=== PATIENT | male | born 1955 | race Caucasian/White ===

== ENCOUNTER 2017-07-04 09:16 | Emergency (ER) | payer BC, OTHER ==
[2017-07-04 09:26] VITALS: BP 150/87
[2017-07-04] MEDS ORDERED: Sodium Chloride 0.9% 10 ML Syringe FLUSH PRN (09:31)
--- NOTE | 2017-07-04 10:37 | CR ---
Chest: Portable view of the chest was obtained. Comparison: No prior chest x-ray. Heart size and mediastinum are within normal limits for portable technique. Lungs are clear. Right shoulder prosthesis is noted. Slight degenerative change is partially visualized within the spine. Impression: 1. Nothing acute is appreciated on portable chest x-ray. Diagnostic code #2
--- NOTE | 2017-07-04 12:51 | EDM.PDOC ---
ED HPI GENERAL MEDICAL PROBLEM - General Chief Complaint: Chest Pain Stated Complaint: [facility] Time Seen by Provider: 07/04/17 09:24 Source of Information: Reports: Patient History Limitations: Reports: No Limitations - History of Present Illness INITIAL COMMENTS - FREE TEXT/NARRATIVE: The patient presents by [place] [facility] for chest pain. This has been going on for a few months. He will get pressure in the upper chest and neck and then have lightheadedness. He will also feel sick and get weak. He says he has had multiple episodes of this. This morning it was more severe so he went to the clinic and he was sent her by ambulance. He was given some aspirin on the way here and the pain went away. He has a history of hypertension and type II diabetes. He has no history of heart disease but he does have a family history of heart disease with his mom. He denies fever, chills, cough, congestion, runny nose, abdominal pain, nausea or vomiting. He feels like his heart may be beating to fast or slow at times with it. Onset: Sudden Duration: Hour(s): Location: Reports: Chest Quality: Reports: Pressure Severity: Moderate Improves with: Reports: None Worsens with: Reports: None Associated Symptoms: Reports: Chest Pain. Denies: Confusion, Cough, Fever/ Chills, Headaches, Nausea/Vomiting, Shortness of Breath Treatments FIELD CONTACT PERSON: Reports: Aspirin, IV/IO - Related Data Allergies Allergy/AdvReac Type Severity Reaction Status Date / Time ketorolac tromethamine Allergy Other Verified 07/04/17 09:26 [From Toradol] Home Meds: Home Meds Atenolol 100 mg PO DAILY 07/04/17 [History] Benazepril [Lotensin] 10 mg PO DAILY 07/04/17 [History] Clotrimazole/Betamethasone Dip [Lotrisone Cream] 1 applic TP DAILY 07/04/17 [ History] Fish Oil/[place]-3 Fatty Acids [Fish Oil 1,000 MG] 1,000 mg PO DAILY 07/04/17 [ History] Gabapentin [Neurontin] 300 mg PO TID 07/04/17 [History] Ibuprofen 800 mg PO Q8H PRN 07/04/17 [History] Loratadine [Claritin] 10 mg PO DAILY 07/04/17 [History] Multivitamin [Multivitamins] 1 each PO DAILY 07/04/17 [History] Simvastatin 40 mg PO DAILY 07/04/17 [History] Venlafaxine [Effexor XR] 75 mg PO DAILY 07/04/17 [History] metFORMIN HCl [Metformin HCl] 500 mg PO BID 07/04/17 [History] Past Medical History Cardiovascular History: Reports: High Cholesterol, Hypertension Neurological History: Reports: Neuropathy, Diabetic Endocrine/Metabolic History: Reports: Diabetes, Type II - Past Surgical History Musculoskeletal Surgical History: Reports: Shoulder Surgery Social & Family History - Tobacco Use Smoking Status *Q: Never Smoker - Caffeine Use Caffeine Use: Reports: Energy Drinks - Recreational Drug Use Recreational Drug Use: No ED ROS GENERAL - Review of Systems Review Of Systems: See Below Constitutional: Reports: No Symptoms HEENT: Reports: No Symptoms Respiratory: Reports: No Symptoms Cardiovascular: Reports: Chest Pain, Lightheadedness Endocrine: Reports: No Symptoms GI/Abdominal: Reports: No Symptoms : Reports: No Symptoms Musculoskeletal: Reports: No Symptoms Skin: Reports: No Symptoms Neurological: Reports: No Symptoms ED EXAM, GENERAL - Physical Exam Exam: See Below Exam Limited By: No Limitations General Appearance: Alert, No Apparent Distress Ears: Normal External Exam Nose: Normal Inspection Head: Atraumatic, Normocephalic Neck: Normal Inspection Respiratory/Chest: No Respiratory Distress, Lungs Clear, Normal Breath Sounds Cardiovascular: Regular Rate, Rhythm, No Edema, No Murmur GI/Abdominal: Soft, Non-Tender, No Organomegaly, No Mass Back Exam: Normal Inspection Extremities: Normal Inspection EKG INTERPRETATION EKG Date: 07/04/17 Time: 09:25 Rhythm: NSR Rate (Beats/Min): 60 [place]: Normal P-Wave: Present QRS: Normal ST-T: Elevated (Minimal ST elevation in the anterior leads seen on prior EKG also) QT: Normal Course - Vital Signs Last Recorded V/S: Last Vital Signs Temp 98.6 F 07/04/17 09:23 Pulse 65 07/04/17 09:23 Resp 17 07/04/17 09:23 BP 150/87 H 07/04/17 09:23 Pulse Ox 94 L 07/04/17 09:23 - Orders/Labs/Meds Orders: Active Orders 24 hr Category Date Time Status Cardiac Monitoring [RC] . DIRECTED Care 07/04/17 09:31 Active EKG Documentation Completion [RC] ASDIRECTED Care 07/04/17 09:24 Inactive EKG Documentation Completion [RC] ASDIRECTED Care 07/04/17 12:10 Active Holter Monitor 48 Hours [RC] .PRN Care 07/04/17 13:20 Active Oxygen Therapy [RC] PRN Care 07/04/17 09:31 Active Peripheral IV Care [RC] . DIRECTED Care 07/04/17 09:32 Active Sodium Chloride 0.9% [Saline Flush] Med 07/04/17 09:31 Active 10 ml FLUSH ASDIRECTED PRN Peripheral IV Insertion Adult [OM.PC] Stat Oth 07/04/17 09:31 Ordered EKG 12 Lead [EK] Stat Ther 07/04/17 09:24 Ordered EKG 12 Lead [EK] Stat Ther 07/04/17 12:10 Ordered Medication Orders Sodium Chloride (Saline Flush) 10 ml FLUSH ASDIRECTED PRN PRN Reason: Keep Vein Open Last Admin: 07/04/17 09:37 Dose: 10 ml Labs: Laboratory Tests 07/04/17 07/04/17 07/04/17 Range/Units 09:45 09:45 09:45 WBC 6.69 (4.23-9.07) K/mm3 RBC 5.10 (4.63-6.08) M/mm3 Hgb 15.3 (13.7-17.5) gm/L Hct 44.1 (40.1-51.0) % MCV 86.5 (79.0-92.2) fl MCH 30.0 (25.7-32.2) pg MCHC 34.7 (32.2-35.5) g/dl RDW Std Deviation 45.1 H (35.1-43.9) fL Plt Count 189 (163-337) K/mm3 MPV 10.9 (9.4-12.3) fl Neut % (Auto) 49.4 (34.0-67.9) % Lymph % (Auto) 31.7 (21.8-53.1) % [place] % (Auto) 13.3 H (5.3-12.2) % Eos % (Auto) 5.2 (0.8-7.0) Baso % (Auto) 0.1 (0.1-1.2) % Neut # (Auto) 3.30 (1.78-5.38) K/mm3 Lymph # (Auto) 2.12 (1.32-3.57) K/mm3 [place] # (Auto) 0.89 H (0.30-0.82) K/mm3 Eos # (Auto) 0.35 (0.04-0.54) K/mm3 Baso # (Auto) 0.01 (0.01-0.08) K/mm3 D-Dimer, Quantitative 0.29 (0.19-0.59) mg/L Sodium 140 (136-145) mEq/L Potassium 4.3 (3.5-5.1) mEq/L Chloride 106 (98-107) mEq/L Carbon Dioxide 25 (21-32) mEq/L Anion Gap 13.3 (5-15) BUN 20 H (7-18) mg/dL Creatinine 0.9 (0.7-1.3) mg/dL Est Cr Clr Drug Dosing 83.39 mL/min Estimated GFR (MDRD) > 60 (>60) mL/min BUN/Creatinine Ratio 22.2 H (14-18) Glucose 89 (80-115) mg/dL Calcium 9.0 (8.5-10.1) mg/dL Total Bilirubin 0.5 (0.2-1.0) mg/dL AST 32 (15-37) U/L ALT 46 (16-63) U/L Alkaline Phosphatase 96 (46-116) U/L Troponin I < 0.017 (0.00-0.056) ng/mL Total Protein 7.5 (6.4-8.2) g/dl Albumin 4.0 (3.4-5.0) g/dl Globulin 3.5 gm/dL Albumin/Globulin Ratio 1.1 (1-2) 07/04/ Range/Units 12:20 WBC (4.23-9.07) K/mm3 RBC (4.63-6.08) M/mm3 Hgb (13.7-17.5) gm/L Hct (40.1-51.0) % MCV (79.0-92.2) fl MCH (25.7-32.2) pg MCHC (32.2-35.5) g/dl RDW Std Deviation (35.1-43.9) fL Plt Count (163-337) K/mm3 MPV (9.4-12.3) fl Neut % (Auto) (34.0-67.9) % Lymph % (Auto) (21.8-53.1) % [place] % (Auto) (5.3-12.2) % Eos % (Auto) (0.8-7.0) Baso % (Auto) (0.1-1.2) % Neut # (Auto) (1.78-5.38) K/mm3 Lymph # (Auto) (1.32-3.57) K/mm3 [place] # (Auto) (0.30-0.82) K/mm3 Eos # (Auto) (0.04-0.54) K/mm3 Baso # (Auto) (0.01-0.08) K/mm3 D-Dimer, Quantitative (0.19-0.59) mg/L Sodium (136-145) mEq/L Potassium (3.5-5.1) mEq/L Chloride (98-107) mEq/L Carbon Dioxide (21-32) mEq/L Anion Gap (5-15) BUN (7-18) mg/dL Creatinine (0.7-1.3) mg/dL Est Cr Clr Drug Dosing mL/min Estimated GFR (MDRD) (>60) mL/min BUN/Creatinine Ratio (14-18) Glucose (80-115) mg/dL Calcium (8.5-10.1) mg/dL Total Bilirubin (0.2-1.0) mg/dL AST (15-37) U/L ALT (16-63) U/L Alkaline Phosphatase (46-116) U/L Troponin I < 0.017 (0.00-0.056) ng/mL Total Protein (6.4-8.2) g/dl Albumin (3.4-5.0) g/dl Globulin gm/dL Albumin/Globulin Ratio (1-2) Meds: Medications Generic Name Dose Route Start Last Admin Trade Name Freq PRN Reason Stop Dose Admin Sodium Chloride 10 ml 07/04/17 09:31 07/04/17 09:37 Saline Flush FLUSH 10 ml ASDIRECTED PRN Administration Keep Vein Open - Re-Assessments/Exams Free Text/Narrative Re-Assessment/Exam: 07/04/17 12:52 I ordered an IV saline lock, EKG, CXR and labs. His EKG shows a NSR with slight ST elevations in the anterior leads. This was seen on prior EKG. His CXR looks good. His CBC and CMP look good. His troponin was negative. I have ordered another troponin at 3 hours and EKG. His EKG shows a NSR with no acute changes. 07/04/17 13:31 His repeat EKG shows a NSR with no acute changes. His repeat troponin is negative. I will have him wear a holter monitor for 2 days and I will have him follow up with cardiology. Departure - Departure Time of Disposition: 13:35 Disposition: Home, Self-Care 01 Condition: Good Clinical Impression: Atypical chest pain, Lightheaded, Palpitations Referrals: Sánchez Carias MD [Primary Care Provider] - 1 Week Forms: ED Department Discharge Additional Instructions: Wear the holter monitor for 2 days. Continue take your prescribed medications. Follow up with Dr Mclean within 1 week. Please return tomorrow for fasting labs so nothing to eat or drink after midnight. Follow up with Dr Gibbs a food science professor at [facility] on August 25 at 1pm central time. Please return if you are worse. - My Orders Last 24 Hours: My Active Orders 07/04/17 09:24 EKG Documentation Completion [RC] ASDIRECTED EKG 12 Lead [EK] Stat 07/04/17 09:31 Cardiac Monitoring [RC] . DIRECTED Oxygen Therapy [RC] PRN Sodium Chloride 0.9% [Saline Flush] 10 ml FLUSH ASDIRECTED PRN Peripheral IV Insertion Adult [OM.PC] Stat 07/04/17 09:32 Peripheral IV Care [RC] . DIRECTED 07/04/17 12:10 EKG Documentation Completion [RC] ASDIRECTED EKG 12 Lead [EK] Stat 07/04/17 13:20 Holter Monitor 48 Hours [RC] .PRN - Assessment/Plan Last 24 Hours: My Active Orders 07/04/17 09:24 EKG Documentation Completion [RC] ASDIRECTED EKG 12 Lead [EK] Stat 07/04/17 09:31 Cardiac Monitoring [RC] . DIRECTED Oxygen Therapy [RC] PRN Sodium Chloride 0.9% [Saline Flush] 10 ml FLUSH ASDIRECTED PRN Peripheral IV Insertion Adult [OM.PC] Stat 07/04/17 09:32 Peripheral IV Care [RC] . DIRECTED 07/04/17 12:10 EKG Documentation Completion [RC] ASDIRECTED EKG 12 Lead [EK] Stat 07/04/17 13:20 Holter Monitor 48 Hours [RC] .PRN
== END 2017-07-04 13:55 | disposition home or self-care (01) ==
LOC: JD.ED 09:16
DX: R07.89 Other chest pain (principal); R00.2 Palpitations; R42 Dizziness and giddiness; E78.00 Pure hypercholesterolemia, unspecified; I10 Essential (primary) hypertension; E11.40 Type 2 diabetes mellitus with diabetic neuropathy, unspecified; Z88.6 Allergy status to analgesic agent; Z79.899 Other long term (current) drug therapy; Z79.84 Long term (current) use of oral hypoglycemic drugs
CPT/HCPCS: 36415; 71045; 80053; 84484; 85025; 85379; 93005; 93225; 93226; 99285; J7050; 93010; 99284-25

== ENCOUNTER 2019-04-25 20:16 | Emergency (ER) | payer OTHER ==
[2019-04-25 21:40] VITALS: BP 207/173; PULSE 140
--- NOTE | 2019-04-25 22:32 | EDM.PDOC ---
ED HPI GENERAL MEDICAL PROBLEM - General Chief Complaint: Chest Pain Stated Complaint: CHEST PAIN Time Seen by Provider: 04/25/19 21:22 Source of Information: Reports: Patient, Family () History Limitations: Reports: No Limitations - History of Present Illness INITIAL COMMENTS - FREE TEXT/NARRATIVE: Mr. Benjamin is a most pleasant 63-year-old man with a past medical history significant for dyslipidemia, hypertension, diabetes, degenerative disc disease , and obstructive sleep apnea on nightly AutoPAP. Medical records indicate that he was seen in this ED on 07/04/2017 with a complaint at that time of chest pain that had been coming and going for a few months. He reported that he would experience upper chest and neck pain and have lightheadedness. He would feel sick and weak. When seen in the ED, he was asymptomatic, and 2 ECGs demonstrated a normal sinus rhythm. A workup that included a CBC, CMP, 2 troponins, and a chest x-ray was entirely unremarkable. He was discharged home with a 48-hour Holter monitor, and instructed to follow-up with a [employer]. The patient states that he then underwent a lumbar fusion in [place] on 04/01, and on 04/02/2019, he was found to be in atrial fibrillation. He was treated with a Cardizem drip, then discharged with oral Cardizem. He followed up with a [employer]inter in [place] on 04/05/2019, who felt that the patient's atrial fibrillation was limited to a postoperative atrial fibrillation, not chronic atrial fibrillation, therefore he stopped the patient's Cardizem, and the patient was not started on an anticoagulant. A Holter monitor was ordered, which has not yet arrived in the mail. At this time, the patient does not have a follow-up appointment with his [employer]inter scheduled. The patient now presents to the ED stating that he developed the sensation of tightness in his throat, a pounding pulse in his left neck, and the ability to hear his pulse, this morning. It lasted for about an hour. Around 17:30 this evening, it happened again, and persisted. He took a single dose of his left- over Cardizem at 18:30. His symptoms resolved about 30 minutes after arrival to the ED, however, an initial ECG was performed while the patient was still symptomatic, demonstrating atrial fibrillation with RVR. The patient denies recent illness, such as fever, chills, cough, dyspnea, chest pain, palpitations, nausea, vomiting, constipation, diarrhea, abdominal pain, urinary symptoms, recent weight gain or weight loss, recent bloody bowel movements or black bowel movements, recent joint aches, headaches, or rashes The patient's PCP is Dr. Sánchez Carias. His Automatic [employer] Printer is Dr. Joseph Contreras. His Neurosurgeon in [place] is Dr. Darrius Cobos. - Related Data Allergies Allergy/AdvReac Type Severity Reaction Status Date / Time ketorolac tromethamine Allergy Other Verified 07/04/17 09:26 [From Toradol] Home Meds: Home Meds Benazepril [Lotensin] 10 mg PO DAILY 07/04/17 [History] Clotrimazole/Betamethasone Dip [Lotrisone Cream] 1 applic TP Q12H PRN 07/04/17 [ History] Fish Oil/[place]-3 Fatty Acids [Fish Oil 1,000 MG] 1,000 mg PO BEDTIME 07/04/17 [ History] Gabapentin [Neurontin] 300 mg PO BID 07/04/17 [History] Loratadine [Claritin] 10 mg PO DAILY 07/04/17 [History] Multivitamin [Multivitamins] 1 each PO DAILY 07/04/17 [History] Simvastatin 40 mg PO DAILY 07/04/17 [History] metFORMIN HCl [Metformin HCl] 500 mg PO BID 07/04/17 [History] Aspirin [Halfprin] 81 mg PO DAILY 04/25/19 [History] Carvedilol [Coreg] 25 mg PO BID 04/25/19 [History] Cyclobenzaprine [Flexeril] 10 mg PO Q8H PRN 04/25/19 [History] DULoxetine HCl [Cymbalta] 30 mg PO DAILY 04/25/19 [History] Diltiazem HCl [Cardizem] 120 mg PO DAILY 04/25/19 [History] Naproxen [Naprosyn] 500 mg PO BID 04/25/19 [History] Polyethylene Glycol 3350 [MiraLAX] 17 gram PO DAILY 04/25/19 [History] Sennosides/Docusate Sodium [Senna Plus 8.6-50 mg Tablet] 2 tab PO BEDTIME [History] oxyCODONE HCl/Acetaminophen [Percocet 5-325 mg Tablet] 1 tab PO Q4H PRN [History] Past Medical History Cardiovascular History: Reports: Afib (paroxysmal), High Cholesterol, Hypertension Respiratory History: Reports: Sleep Apnea (nightly AutoPAP) Musculoskeletal History: Reports: Back Pain, Chronic (2 DDD) Neurological History: Reports: Neuropathy, Diabetic, Other (See Below) ( Meningioma) Endocrine/Metabolic History: Reports: Diabetes, Type II - Past Surgical History Neurological Surgical History: Reports: C-Spine (ACDF), Lumbar Spine ( microdiscectomy, followed by laminectomy, followed by fusion) Musculoskeletal Surgical History: Reports: Arthroscopic Knee (right), Shoulder Replacement (right), Shoulder Surgery (right, arthroscopic) Social & Family History - Tobacco Use Smoking Status *Q: Never Smoker - Caffeine Use Caffeine Use: Reports: Soda - Alcohol Use Alcohol Use History: No - Recreational Drug Use Recreational Drug Use: No - Living Situation & Occupation Living situation: Reports: , with Spouse 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 ED EXAM, GENERAL - Physical Exam Exam: See Below Exam Limited By: No Limitations General Appearance: Alert, WD/WN, No Apparent Distress Eye Exam: Bilateral Eye: EOMI, Normal Inspection Ears: Normal External Exam, Hearing Grossly Normal Nose: Normal Inspection Throat/Mouth: Normal Inspection, Normal Lips, Normal Voice, No Airway Compromise Head: Atraumatic, Normocephalic Neck: Normal Inspection, Full Range of Motion Respiratory/Chest: No Respiratory Distress, Lungs Clear, Normal Breath Sounds, No Accessory Muscle Use Cardiovascular: Normal Peripheral Pulses, Regular Rate, Rhythm, No Edema, No Gallop, No JVD, No Murmur, No Rub Peripheral Pulses: 4+: Radial (L), Radial (R) GI/Abdominal: Normal Bowel Sounds, Soft, Non-Tender, No Organomegaly, No Distention, No Abnormal Bruit, No Mass (Male) Exam: Circumcised, Deferred Rectal (Males) Exam: Deferred Back Exam: Normal Inspection, Full Range of Motion, NT Extremities: Normal Inspection, Normal Range of Motion, No Pedal Edema, Normal Capillary Refill Neurological: Alert, Oriented, Normal Cognition, No Motor/Sensory Deficits Psychiatric: Normal Affect Skin Exam: Warm, Dry, Intact, Normal Color, No Rash EKG INTERPRETATION EKG Date: 04/25/19 Time: 20:23 Rhythm: A-Fib Rate (Beats/Min): 137 [place]: Normal P-Wave: Absent QRS: Normal ST-T: Normal QT: Prolonged (QTc 476 ms) Comparison: Change From Previous EKG (was in NSR 07/04/2017) Course - Vital Signs Last Recorded V/S: Last Vital Signs Temp 36.1 C 04/25/19 20:23 Pulse 140 H 04/25/19 20:23 Resp 19 04/25/19 20:23 BP 207/173 H 04/25/19 20:23 Pulse Ox 99 04/25/19 20:23 - Re-Assessments/Exams Free Text/Narrative Re-Assessment/Exam: 04/25/19 22:21 Upon presentation, the triage nurse obtained an ECG which demonstrated atrial fibrillation with RVR. The patient states that about 30 minutes after arrival to the ED, his symptoms resolved, and, in fact, on both his monitor and on a subsequent ECG, the patient has spontaneously converted to a normal sinus rhythm. His repeat ECG at 22:12 demonstrates a normal sinus rhythm at 63 bpm. No atrial enlargement or AV block. No ischemic changes. Normal transition. No LAD or RAD. No LVH or RVH. No intraventricular conduction delays. The QTc is within normal limits. At present, the patient has some Cardizem at home, but does not take it regularly, although his did give him one tablet around 18:30 tonight. He is not on an anticoagulant. We discussed his options. For tonight's purposes, the patient has opted to not start on an anticoagulant. He will go home with no changes in his medications, however, if he discovers that he is going into atrial fibrillation often, he will start taking his previously prescribed Cardizem on a daily basis. If he notices that he is in atrial fibrillation for close to 24 hours, he will return to the ED to start an anticoagulant, as a mural thrombus can form within 24-48 hours. In the meantime , however, the patient has been given a copy of his ECG demonstrating atrial fibrillation, and he will follow-up with his [employer]inter at the next available appointment. When his Holter monitor arrives in the mail, there is no harm in him wearing it, although his ECG now definitively shows him to have paroxysmal atrial fibrillation. Departure - Departure Time of Disposition: 00:26 Disposition: Home, Self-Care 01 Condition: Good Clinical Impression: Paroxysmal atrial fibrillation with rapid ventricular response Instructions: Atrial Fibrillation Referrals: Sánchez Carias MD [Primary Care Provider] - Joseph Contreras DO [Ordering Only Provider] - Darrius Cobos MD [Ordering Only Provider] - Forms: ED Department Discharge Additional Instructions: You were seen in the emergency room after developing a prolonged episode of tightness in your throat, a pounding pulse in your left neck, and hearing an irregular heartbeat, symptoms consistent with prior episodes of atrial fibrillation. Workup in the ER included an ECG, which confirmed that you were in atrial fibrillation with a rapid ventricular response. You spontaneously converted to a normal sinus rhythm, and a subsequent ECG confirmed that, as well. Starting anticoagulation was offered, but declined. You have been provided with a Xerox copy of the ECG showing you to be in atrial fibrillation. You will follow-up with your Automatic [employer] Screen Printer, Dr. Joseph Contreras, at the next available appointment. Take the Xerox copy of your ECG with you. If you find yourself to be in atrial fibrillation frequently, start taking your previously prescribed Cardizem on a daily basis. If you find yourself to be in atrial fibrillation approaching 24 hours in duration, please return to the ER to begin anticoagulation. If any other problems, please do not hesitate to return to the ER. Sepsis Event Note - Evaluation Sepsis Screening Result: No Definite Risk - Focused Exam Vital Signs: Vital Signs Temp Pulse Resp BP Pulse Ox 04/25/19 20:23 36.1 C 140 H 19 207/173 H 99 Date Exam was Performed: 04/26/19 Time Exam was Performed: 06:03
== END 2019-04-26 00:35 | disposition home or self-care (01) ==
LOC: JD.ED 20:16
DX: I48.0 Paroxysmal atrial fibrillation (principal); I10 Essential (primary) hypertension; E11.9 Type 2 diabetes mellitus without complications; E78.00 Pure hypercholesterolemia, unspecified; Z88.8 Allergy status to other drugs, medicaments and biological substances; Z79.899 Other long term (current) drug therapy; Z79.82 Long term (current) use of aspirin; Z79.84 Long term (current) use of oral hypoglycemic drugs
CPT/HCPCS: 93010; 99284; 99284-25

== ENCOUNTER 2021-02-23 18:39 | Emergency (ER) | payer MEDICARE, OTHER ==
--- NOTE | 2021-02-23 21:01 | EDM.PDOC ---
ED HPI GENERAL MEDICAL PROBLEM - General Chief Complaint: Back Pain or Injury Stated Complaint: BACK INJURY Time Seen by Provider: 02/23/21 20:37 Source of Information: Reports: Patient, Family (Son) History Limitations: Reports: No Limitations - History of Present Illness INITIAL COMMENTS - FREE TEXT/NARRATIVE: Mr. Benjamin is a very pleasant 65-year-old gentleman who now presents the ED for evaluation of injuries sustained when he fell while trying to get into a pickup truck around 17:00 this evening. He states that he fell onto hard packed gravel in a parking lot, primarily landing on his upper and mid back, but also injuring his right shoulder and anterior right chest. He also states that he hit his head "hard" harder than he has ever hit his head before. He denies suffering loss of consciousness, although he states that he has a constant headache ever since the injury. He is on Eliquis. The patient states that he took 1 g of acetaminophen about 16:00, but no analgesics since his fall. He is not concerned that anything is broken. He is primarily here for evaluation of his head. Here in the ED, the patient's initial BP is found to be mildly elevated at 159/93, otherwise, he is hemodynamically stable, afebrile, saturating 98% on room air. He appears to be comfortable, in no acute distress. Prior to this evening's fall, the patient denies having a recent fever, chills, sore throat, ear pain, nasal or sinus congestion, cough, dyspnea, chest pain, palpitations, nausea, vomiting, constipation, diarrhea, abdominal pain, urinary symptoms, recent weight gain or weight loss, recent bloody bowel movements or black bowel movements, recent joint aches, headaches, or rashes. I reviewed the PMHx/PSHx/SocHx, which was reviewed with the patient by the RN. The patient's PCP is Dr. Sánchez Carias. His EP Hoop Maker Machine is Dr. Chester Mayen. His Hoop Maker Machine is Dr. Joseph Contreras. His Neurosurgeon is Dr. Emigdio Nguyễn. His Spinal Surgeon is Dr. Nando Cobos. He has not received a COVID vaccination, nor an influenza vaccination this season. Treatments FILLER IN: Reports: Acetaminophen Right Upper Back Pain Score (Numeric/FACES): 4 Right Middle Back Pain Score (Numeric/FACES): 4 Right Chest Pain Score (Numeric/FACES): 7 Posterior Head Pain Score (Numeric/FACES): 5 - Related Data Allergies Allergy/AdvReac Type Severity Reaction Status Date / Time ketorolac tromethamine Allergy Severe Other Verified 02/23/21 18:54 [From Toradol] Home Meds: Home Meds Benazepril [Lotensin] 10 mg PO DAILY 07/04/17 [History] Clotrimazole/Betamethasone Dip [Lotrisone Cream] 1 applic TP Q12H PRN 07/04/17 [History] Fish Oil/Marion-3 Fatty Acids [Fish Oil 1,000 MG] 1,000 mg PO BEDTIME 07/04/17 [History] Gabapentin [Neurontin] 300 mg PO BID 07/04/17 [History] Loratadine [Claritin] 10 mg PO DAILY 07/04/17 [History] Multivitamin [Multivitamins] 1 each PO DAILY 07/04/17 [History] Simvastatin 40 mg PO DAILY 07/04/17 [History] metFORMIN HCl [Metformin HCl] 500 mg PO BID 07/04/17 [History] Aspirin [Halfprin] 81 mg PO DAILY 04/25/19 [History] Cyclobenzaprine [Flexeril] 10 mg PO Q8H PRN 04/25/19 [History] DULoxetine HCl [Cymbalta] 30 mg PO DAILY 04/25/19 [History] Naproxen [Naprosyn] 500 mg PO BID 04/25/19 [History] Sennosides/Docusate Sodium [Senna Plus 8.6-50 mg Tablet] 2 tab PO BEDTIME 04/25/19 [History] carvediloL [Coreg] 25 mg PO BID 04/25/19 [History] dilTIAZem HCL [Cardizem] 120 mg PO DAILY 04/25/19 [History] oxyCODONE HCl/Acetaminophen [Percocet 5-325 mg Tablet] 1 tab PO Q4H PRN 04/25/19 [History] polyethylene glycoL 3350 [MiraLAX] 17 gram PO DAILY 04/25/19 [History] Past Medical History Cardiovascular History: Reports: Afib, High Cholesterol, Hypertension Respiratory History: Reports: Sleep Apnea Musculoskeletal History: Reports: Back Pain, Chronic Neurological History: Reports: Neuropathy, Diabetic Endocrine/Metabolic History: Reports: Diabetes, Type II - Infectious Disease History Infectious Disease History: Reports: Measles, Mumps - Past Surgical History Neurological Surgical History: Reports: C-Spine, Lumbar Spine (L3-L4 fusion 2019) Musculoskeletal Surgical History: Reports: Arthroscopic Knee, Shoulder Replacement, Shoulder Surgery Other Musculoskeletal Surgeries/Procedures:: back surgery Mar Social & Family History - Tobacco Use Tobacco Use Status *Q: Never Tobacco User - Caffeine Use Caffeine Use: Reports: Coffee, Soda, Tea - Recreational Drug Use Recreational Drug Use: No Recreational Drug Use Frequency: Socially - Living Situation & Occupation Living situation: Reports: , with Spouse 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 ED EXAM, GENERAL - Physical Exam Exam: See Below Exam Limited By: No Limitations General Appearance: Alert, WD/WN, No Apparent Distress Eye Exam: Bilateral Eye: EOMI, Normal Inspection Ears: Normal External Exam, Normal Canal, Hearing Grossly Normal, Normal TMs Nose: Normal Inspection, Normal Mucosa, No Blood Throat/Mouth: Normal Inspection, Normal Lips, Normal Teeth, Normal Gums, Normal Oropharynx, Normal Voice, No Airway Compromise Head: Atraumatic, Normocephalic Neck: Normal Inspection, Supple, Non-Tender, Full Range of Motion Respiratory/Chest: No Respiratory Distress, Lungs Clear, Normal Breath Sounds, No Accessory Muscle Use, Other (Mild tenderness to a discrete spot on the anterior right chest, as well as to the right latissimus dorsi muscles. No visible injuries to either site, such as swelling, erythema, ecchymosis, or abrasion.). No: Decreased Breath Sounds, Crackles, Rhonchi, Wheezing, Stridor, Prolonged Expiration Cardiovascular: Normal Peripheral Pulses, Regular Rate, Rhythm, No Edema, No Gallop, No JVD, No Murmur, No Rub Peripheral Pulses: 3+: Radial (L), Radial (R) GI/Abdominal: Normal Bowel Sounds, Soft, Non-Tender, No Organomegaly, No Distention, No Abnormal Bruit, No Mass Back Exam: Full Range of Motion, Other (The patient reports some tenderness to his right latissimus dorsi muscle, although there is no visible injury.). No: Vertebral Tenderness Extremities: Normal Inspection, Normal Range of Motion, No Pedal Edema, Normal Capillary Refill Neurological: Alert, Oriented, CN II-XII Intact, Normal Cognition, No Motor/Sensory Deficits Psychiatric: Normal Affect Skin Exam: Warm, Dry, Intact, Normal Color, No Rash Course - Vital Signs Last Recorded V/S: Last Vital Signs Temp 36.9 C 02/23/21 18:59 Pulse 71 02/23/21 21:31 Resp 16 02/23/21 21:31 BP 147/84 H 02/23/21 21:31 Pulse Ox 98 02/23/21 21:31 - Orders/Labs/Meds Orders: Active Orders 24 hr Category Date Time Status Chest 2V [CR] Stat Exams 02/23/21 20:57 Taken Head wo Cont [CT] Stat Exams 02/23/21 20:56 Taken - Re-Assessments/Exams Free Text/Narrative Re-Assessment/Exam: 02/23/21 20:58 Although the patient is neurologically intact, he states that he struck his head harder than he has ever struck it before, and is complaining of a headache, in the setting of being on Eliquis. I have therefore ordered a CT of the head without contrast to evaluate for an intracranial injury. I have additionally ordered a chest x-ray to rule out any significant chest damage. The patient declined an offer for pain medication. 02/23/21 21:23 Two-view chest radiograph appears to be grossly normal. The cardiac silhouette is within normal limits. No pulmonary vascular congestion. No pleural effusions. No focal infiltrate. No pneumothorax. Formal read per the Radiologist pending. CT of the head without contrast is read by [facility] as "No evidence of acute intracranial pathology". 02/23/21 21:26 Imaging study results discussed with the patient and his son. I will discharge him home with recommendation that he get plenty of rest tonight, then resume his usual activities tomorrow. He should not just lay around. The patient expressed agreement. Because he is on Eliquis, he has been told to not take ibuprofen, but he may take acetaminophen as needed for discomfort. Departure - Departure Time of Disposition: 21:26 Disposition: Home, Self-Care 01 Condition: Good Clinical Impression: Fall - Discharge Information *PRESCRIPTION DRUG MONITORING PROGRAM REVIEWED*: Not Applicable *COPY OF PRESCRIPTION DRUG MONITORING REPORT IN PATIENT [place]AN[place]: Not Applicable Referrals: Sánchez Carias MD [Primary Care Provider] - Emigdio Nguyễn MD [Ordering Only Provider] - Darrius Cobos MD [Ordering Only Provider] - Chester Mayen [Ordering Only Provider] - Joseph Contreras DO [Ordering Only Provider] - Forms: ED Department Discharge Additional Instructions: You were seen in the emergency room after falling while getting into a pickup truck this afternoon. Work-up in the ER included a CT scan of your head and a chest x-ray. Both the CT scan and the chest x-ray show no acute injuries. As discussed, we recommend that you get plenty of rest tonight, then resume your usual activities tomorrow, even though you will be sore. You may take [id number] acetaminophen (Tylenol) as needed for discomfort. If any other problems, please do not hesitate to return to the ER. Sepsis Event Note (ED) - Focused Exam Vital Signs: Vital Signs Temp Pulse Resp BP Pulse Ox 02/23/21 21:31 71 16 147/84 H 98 02/23/21 18:59 36.9 C 72 20 159/93 H 98 - My Orders Last 24 Hours: My Active Orders 02/23/21 20:56 Head wo Cont [CT] Stat 02/23/21 20:57 Chest 2V [CR] Stat - Assessment/Plan Last 24 Hours: My Active Orders 02/23/21 20:56 Head wo Cont [CT] Stat 02/23/21 20:57 Chest 2V [CR] Stat
[2021-02-23 21:37] VITALS: BP 147/84; PULSE 71
--- NOTE | 2021-02-24 05:30 | CT ---
Head CT Technique: Multiple axial sections through the brain were obtained. Intravenous contrast was not utilized. Reconstructed coronal and sagittal images were also obtained. Comparison: Prior head CT study of the 12/18/10. Findings: Calcified lesion is seen within the posterior fossa which measures about 3.8 cm in greatest dimension with transverse dimension of 1.9 cm. This appears fairly similar to prior head CT exam and most likely represents a meningioma which is extra-axial in location. This finding indents the right side of the cerebellum. Ventricles along with basal cisterns and sulci over the convexities appear within normal limits for the patient's age. No abnormal parenchymal densities are seen. No evidence of intracranial hemorrhage is seen. No midline shift is seen. Bone window settings were reviewed. Visualized mastoid sinuses and paranasal sinuses show nothing acute. No acute calvarial abnormality is appreciated. Impression: 1. Mass within the right posterior fossa which is extra-axial in location. This finding is fairly similar to prior study and most likely represents a stable meningioma. This finding causes some compression upon the right cerebellum which is also stable. 2. Nothing acute is seen on noncontrast head CT study. Diagnostic code #2 I agree with preliminary report from 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
--- NOTE | 2021-02-24 05:31 | CR ---
Chest: PA and lateral views of the chest were obtained. Comparison: Prior chest x-ray of 07/04/17. Prior lumbar spine surgery is noted. Mild scattered end plate spurring is seen within the thoracic spine. Right shoulder prosthesis is seen. Lungs show no acute parenchymal change. Heart size and mediastinum are within normal limits. Impression: 1. Nothing acute is seen on 2 view chest x-ray. Diagnostic code #2
== END 2021-02-23 21:31 | disposition home or self-care (01) ==
LOC: JD.ED 18:39
DX: S09.90XA Unspecified injury of head, initial encounter (principal); M54.6 Pain in thoracic spine; E78.00 Pure hypercholesterolemia, unspecified; I10 Essential (primary) hypertension; I48.91 Unspecified atrial fibrillation; E11.40 Type 2 diabetes mellitus with diabetic neuropathy, unspecified; Z88.6 Allergy status to analgesic agent; Z79.899 Other long term (current) drug therapy; Z79.82 Long term (current) use of aspirin; Z79.84 Long term (current) use of oral hypoglycemic drugs; W19.XXXA Unspecified fall, initial encounter
CPT/HCPCS: 70450; 70450-26; 71046; 71046-26; 99284-25

== ENCOUNTER 2021-10-22 12:04 | Emergency (ER) | payer MEDICARE ==
[2021-10-22] MEDS ORDERED: Diltiazem 50 MG/10 ML SDV ONE (12:27)
[2021-10-22] MEDS ORDERED: Diltiazem 50 MG/10 ML SDV IVPUSH ONE ×2 (12:29→12:33)
[2021-10-22] MEDS ORDERED: Lactated Ringers 500 ML IV ONE (12:42)
[2021-10-22] MEDS ORDERED: Flecainide 50 MG Tab PO ONE (12:51)
[2021-10-22] MEDS ORDERED: Carvedilol 12.5 MG Tab PO ONE (12:51)
[2021-10-22] MEDS ORDERED: Diltiazem 100 MG in Sodium Chloride 0.9% 100 ML IV SCH (13:00)
[2021-10-22] MEDS ORDERED: Potassium Chloride 20 MEQ Tab.ER PO ONE (13:57)
[2021-10-22] MEDS ORDERED: Warfarin 10 MG Tab PO ONE (13:59)
[2021-10-22] MEDS ORDERED: Warfarin 5 MG Tab ONE (15:29)
[2021-10-22] MEDS ORDERED: Warfarin 5 MG Tab PO ONE (15:30)
[2021-10-22 17:11] VITALS: BP 118/72; PULSE 75
== END 2021-10-22 16:05 | disposition home or self-care (01) ==
LOC: JD.ED 12:04
DX: I48.91 Unspecified atrial fibrillation (principal); E78.00 Pure hypercholesterolemia, unspecified; E11.21 Type 2 diabetes mellitus with diabetic nephropathy; I10 Essential (primary) hypertension; Z88.1 Allergy status to other antibiotic agents; Z79.899 Other long term (current) drug therapy; Z79.84 Long term (current) use of oral hypoglycemic drugs; Z79.82 Long term (current) use of aspirin
CPT/HCPCS: 36415; 71045; 80053; 83735; 84484; 85025; 85610; 93005; 96365; 96376; 99285; A9270; J3490; J7120

== ENCOUNTER 2022-09-13 15:03 | Emergency (ER) | payer MEDICARE, OTHER ==
[2022-09-13 16:01] LABS: HEMATOCRIT 41.9 % (40.1-51.0); HEMOGLOBIN 14.6 gm/dl (13.7-17.5); MEAN CORPUSCULAR HEMOGLOBIN 31.7 pg (25.7-32.2); MEAN CORPUSCULAR HGB CONC 34.8 g/dl (32.2-35.5); MEAN CORPUSCULAR VOLUME 91.1 fl (79.0-92.2); MEAN PLATELET VOLUME 10.3 fl (9.4-12.3); WHITE BLOOD CELL COUNT,WBC 7.86 K/mm3 (4.23-9.07)
[2022-09-13 16:04] LABS: PLATELET COUNT,PLT 287 K/mm3 (163-337)
[2022-09-13 16:14] VITALS: PULSE 65
[2022-09-13 16:25] LABS: BAND PERCENT MAN 0 % (0-10); BASOPHILS PERCENT MAN 0 (0.2-1.2); EOSINOPHILS PERCENT MAN 1 % (0.8-7.0); LYMPHOCYTES % ATYPICAL MANUAL 0 %; LYMPHOCYTES PERCENT MAN 19 % (20-40); MONOCYTES PERCENT MAN 13 % (2-10)
[2022-09-13 16:26] LABS: INR 2.27; PLATELET COUNT ESTIMATE ADEQUATE; PROTHROMBIN TIME 22.9 SECONDS (9.7-12.0)
[2022-09-13 16:47] LABS: ALANINE AMINOTRANSFERASE,ALT 33 U/L (16-63); ALBUMIN 4.1 g/dl (3.4-5.0); ALKALINE PHOSPHATASE 112 U/L (46-116); ANION GAP 18.6 (5-15); ASPARTATE AMNIOTRANSFERASE,AST 27 U/L (15-37); BILIRUBIN TOTAL 0.7 mg/dL (0.2-1.0); BLOOD UREA NITROGEN,BUN 20 mg/dL (7-18); CARBON DIOXIDE,CO2 20 mEq/L (21-32); CHLORIDE,CL 103 mEq/L (98-107); CKMB 3.3 ng/ml (0-3.6); CREATINE KINASE,CK 262 U/L (39-308); ESTIMATED GFR 83 mL/min (>60); GLUCOSE RANDOM 146 mg/dL (70-99); POTASSIUM,K 3.6 mEq/L (3.5-5.1); PROTEIN TOTAL,TP 8.1 g/dl (6.4-8.2); SODIUM,NA 138 mEq/L (136-145); TROPONIN I HIGH SENSITIVITY 4 pg/mL (<=76); TSH 1.021 uIU/mL (0.358-3.74)
[2022-09-13 16:50] LABS: D-DIMER QUANTITATIVE < 0.19 mg/L (0.19-0.50)
[2022-09-13] MEDS ORDERED: Cyclobenzaprine 10 MG Tab PO PRN (17:22)
[2022-09-13] MEDS ORDERED: metFORMIN 500 MG Tab PO SCH (18:15)
[2022-09-13 19:53] VITALS: BP 141/78
[2022-09-13] MEDS ORDERED: Fish Oil/Omega-3 Fatty Acids 1 Gm Cap PO SCH (21:00)
[2022-09-13] MEDS ORDERED: Gabapentin 300 MG Cap PO SCH (21:00)
[2022-09-13] MEDS ORDERED: Carvedilol 12.5 MG Tab PO SCH (21:00)
[2022-09-13] MEDS ORDERED: Flecainide 50 MG Tab PO SCH (21:00)
[2022-09-14] MEDS ORDERED: Lisinopril 10 MG Tab PO SCH (09:00)
[2022-09-14] MEDS ORDERED: Loratadine 10 MG Tab PO SCH (09:00)
[2022-09-14] MEDS ORDERED: DULoxetine 30 MG Cap PO SCH (09:00)
[2022-09-14] MEDS ORDERED: atorvaSTATin 20 MG Tab PO SCH (09:00)
[2022-09-14] MEDS ORDERED: Warfarin 3 MG Tab PO SCH (18:00)
== END 2022-09-13 20:54 | disposition home or self-care (01) ==
LOC: JD.ED 15:03 → UNDOADMOB 17:25 → JD.MS 17:25
DX: H83.09 Labyrinthitis, unspecified ear (principal); I48.91 Unspecified atrial fibrillation; E78.00 Pure hypercholesterolemia, unspecified; I10 Essential (primary) hypertension; E11.40 Type 2 diabetes mellitus with diabetic neuropathy, unspecified; Z88.8 Allergy status to other drugs, medicaments and biological substances; Z79.01 Long term (current) use of anticoagulants; Z79.84 Long term (current) use of oral hypoglycemic drugs; Z79.899 Other long term (current) drug therapy
CPT/HCPCS: 36415; 70450; 70450-26; 71045; 71045-26; 80053; 80307; 82550; 82553; 82947; 83605; 83880; 84443; 84484; 85007; 85027; 85379; 85610; 85730; 87040; 93005; 99285

== ENCOUNTER 2023-07-28 17:13 | Emergency (ER) | payer MEDICARE, OTHER ==
[2023-07-28 17:37] VITALS: PULSE 67
[2023-07-28] MEDS: Iopamidol 612 MG/ML 100 ML Bottle IVPUSH ONE (18:38)
[2023-07-28] MEDS: Sodium Chloride 0.9% 10 ML Syringe FLUSH ONE (18:38)
[2023-07-28] MEDS: Sodium Chloride 0.9% 10 ML Syringe FLUSH PRN (19:05)
[2023-07-28 19:16] LABS: BASOPHILS PERCENT AUTO 0.3 % (0.0-1.0); EOSINOPHILS ABSOLUTE AUTO 0.1 K/mm3 (0.0-0.4); EOSINOPHILS PERCENT AUTO 1.2 % (0.0-6.0); HEMATOCRIT 40.4 % (42.0-52.0); HEMOGLOBIN 13.9 gm/dl (14.0-18.0); IMMATURE GRAN ABSOLUTE AUTO 0.04 K/mm3 (0.00-0.05); IMMATURE GRAN PERCENT AUTO 0.4 % (0.0-0.4); LYMPHOCYTES ABSOLUTE AUTO 1.2 K/mm3 (1.0-4.8); LYMPHOCYTES PERCENT AUTO 11.5 % (24.0-44.0); MEAN CORPUSCULAR HEMOGLOBIN 31.7 pg (28.0-32.0); MEAN CORPUSCULAR HGB CONC 34.4 g/dl (32.0-36.0); MEAN PLATELET VOLUME 10.2 fl (9.4-12.4); MONOCYTES ABSOLUTE AUTO 1.4 K/mm3 (0.0-0.8); NEUTROPHILS ABSOLUTE AUTO 7.9 K/mm3 (1.8-7.7); NEUTROPHILS PERCENT AUTO 73.6 % (41.0-71.0); PLATELET COUNT,PLT 257 K/mm3 (150-400); RED BLOOD CELL COUNT 4.39 M/mm3 (4.52-5.90); WHITE BLOOD CELL COUNT,WBC 10.72 K/mm3 (3.9-11.3)
[2023-07-28 19:26] LABS: A/G RATIO 0.8 (1-2); ALBUMIN 3.4 g/dl (3.4-5.0); ANION GAP 12.9 (5-15); BILIRUBIN TOTAL 0.4 mg/dL (0.2-1.0); C-REACTIVE PROTEIN 8.42 mg/dL (<0.30); EST CRCL DRUG DOSING (CG) 67.02 mL/min; POTASSIUM,K 3.9 mEq/L (3.5-5.1); PROTEIN TOTAL,TP 7.9 g/dl (6.4-8.2)
[2023-07-28 19:28] LABS: INR 2.91; PROTHROMBIN TIME 28.8 SECONDS (9.7-12.0)
[2023-07-28] MEDS: Ondansetron 4 MG/2 ML SDV IVPUSH ONE (19:59)
[2023-07-28] MEDS: Morphine 4 MG/ML Syringe IVPUSH ONE (19:59)
[2023-07-28] MEDS: Non-Formulary Medication 1 Each SQ ONE (20:15)
[2023-07-28] MEDS: Lidocaine 1% 30 ML SDV ONE (20:15)
[2023-07-28] MEDS ORDERED: Lidocaine 1% 30 ML SDV INJECT ONE (20:15)
[2023-07-28] MEDS: Non-Formulary Medication 1 Each SQ STA (22:34)
[2023-07-28 22:37] LABS: APPEARANCE SYNOVIAL FLUID TURBID (CLEAR); COLOR,SYNOVIAL FLUID YELLOW; SITE,SYNOVIAL FLUID RIGHT KNEE; VOLUME SYNOVIAL FLUID 20; WBC,SYNOVIAL FLUID 75852 cells/uL (0-200)
[2023-07-28 22:39] LABS: RBC,SYNOVIAL FLUID 3000 cells/uL (0-0)
[2023-07-28 22:52] VITALS: BP 161/79
== END 2023-07-28 21:00 | disposition home or self-care (01) ==
LOC: JD.ED 17:13
DX: M23.321 Other meniscus derangements, posterior horn of medial meniscus, right knee (principal); I10 Essential (primary) hypertension; E78.00 Pure hypercholesterolemia, unspecified; I48.91 Unspecified atrial fibrillation; E11.9 Type 2 diabetes mellitus without complications; Z88.5 Allergy status to narcotic agent; Z79.899 Other long term (current) drug therapy; Z79.84 Long term (current) use of oral hypoglycemic drugs; Z79.01 Long term (current) use of anticoagulants; Z86.16 Personal history of COVID-19
CPT/HCPCS: 20610; 36415; 73562; 73701; 80053; 85025; 85610; 86140; 89060; 96374; 96375; 99284; J2270; J2405; J3490; Q9967

== ENCOUNTER 2023-08-04 22:36 | Emergency (ER) | payer MEDICARE, OTHER ==
[2023-08-04 22:47] VITALS: PULSE 175
[2023-08-04] MEDS ORDERED: Sodium Chloride 0.9% 10 ML Syringe FLUSH PRN (22:47)
[2023-08-04] MEDS: Diltiazem 25 MG/5 ML SDV IVPUSH ONE (22:54)
[2023-08-04 22:55] LABS: BASOPHILS PERCENT AUTO 0.3 % (0.0-1.0); EOSINOPHILS ABSOLUTE AUTO 0.2 K/mm3 (0.0-0.4); EOSINOPHILS PERCENT AUTO 2.2 % (0.0-6.0); HEMATOCRIT 34.1 % (42.0-52.0); HEMOGLOBIN 11.8 gm/dl (14.0-18.0); IMMATURE GRAN ABSOLUTE AUTO 0.05 K/mm3 (0.00-0.05); IMMATURE GRAN PERCENT AUTO 0.5 % (0.0-0.4); LYMPHOCYTES ABSOLUTE AUTO 2.1 K/mm3 (1.0-4.8); LYMPHOCYTES PERCENT AUTO 19.9 % (24.0-44.0); MEAN CORPUSCULAR HEMOGLOBIN 31.1 pg (28.0-32.0); MEAN CORPUSCULAR HGB CONC 34.6 g/dl (32.0-36.0); MEAN CORPUSCULAR VOLUME 89.7 fl (83.0-99.0); MONOCYTES ABSOLUTE AUTO 1.4 K/mm3 (0.0-0.8); MONOCYTES PERCENT AUTO 12.7 % (0.0-8.0); NEUTROPHILS ABSOLUTE AUTO 6.9 K/mm3 (1.8-7.7); NEUTROPHILS PERCENT AUTO 64.4 % (41.0-71.0); PLATELET COUNT,PLT 417 K/mm3 (150-400); WHITE BLOOD CELL COUNT,WBC 10.73 K/mm3 (3.9-11.3)
[2023-08-04] MEDS: Diltiazem 125 MG in Sodium Chloride 0.9% 100 ML IV SCH (22:55)
[2023-08-04] MEDS: Sodium Chloride 0.9% 1,000 ML IV SCH (22:55)
[2023-08-04 23:23] LABS: INR 1.3; PROTHROMBIN TIME 13.6 SECONDS (9.7-12.0)
[2023-08-04 23:25] LABS: A/G RATIO 0.5 (1-2); ALBUMIN 2.5 g/dl (3.4-5.0); ANION GAP 15.9 (5-15); BILIRUBIN TOTAL 0.7 mg/dL (0.2-1.0); BUN/CREATININE RATIO 15.6 (14-18); CALCIUM 9.4 mg/dL (8.5-10.1); CREATININE 0.9 mg/dL (0.7-1.3); EST CRCL DRUG DOSING (CG) 74.46 mL/min; POTASSIUM,K 3.9 mEq/L (3.5-5.1); PROTEIN TOTAL,TP 7.8 g/dl (6.4-8.2); TSH 1.725 uIU/mL (0.358-3.74)
[2023-08-05] MEDS: Iopamidol 755 Mg/ML 100 ML Bottle IVPUSH ONE (00:46)
[2023-08-05] MEDS: Sodium Chloride 0.9% 10 ML Syringe FLUSH PRN (00:48)
[2023-08-05] MEDS ORDERED: Sodium Chloride 0.9% 100 ML IV SCH (01:00)
[2023-08-05] MEDS: Enoxaparin 80 MG/0.8 ML Syringe SUBCUT ONE (01:06)
[2023-08-05 02:26] VITALS: BP 142/62
== END 2023-08-05 02:45 ==
LOC: JD.ED 22:36
DX: I48.91 Unspecified atrial fibrillation (principal); J18.9 Pneumonia, unspecified organism; L08.9 Local infection of the skin and subcutaneous tissue, unspecified; R79.1 Abnormal coagulation profile; I10 Essential (primary) hypertension; E78.00 Pure hypercholesterolemia, unspecified; E11.40 Type 2 diabetes mellitus with diabetic neuropathy, unspecified; Z86.16 Personal history of COVID-19; Z88.5 Allergy status to narcotic agent; Z79.899 Other long term (current) drug therapy; Z79.84 Long term (current) use of oral hypoglycemic drugs; Z79.01 Long term (current) use of anticoagulants
CPT/HCPCS: 36415; 71045; 71275; 80053; 83735; 84443; 84484; 85025; 85610; 93005; 96361; 96365; 96366; 96372; 96376; 99285; J1650; J3490; J7030; Q9967

== ENCOUNTER 2023-09-02 12:17 | Emergency (ER) | payer MEDICARE, OTHER ==
[2023-09-02] MEDS ORDERED: Heparin Sodium 10 UNIT/ML 3 ML Syringe FLUSH STA (14:09)
[2023-09-02 14:42] LABS: BASOPHILS PERCENT AUTO 0.5 % (0.0-1.0); EOSINOPHILS ABSOLUTE AUTO 0.3 K/mm3 (0.0-0.4); EOSINOPHILS PERCENT AUTO 5.5 % (0.0-6.0); HEMATOCRIT 31.7 % (42.0-52.0); IMMATURE GRAN ABSOLUTE AUTO 0.05 K/mm3 (0.00-0.05); IMMATURE GRAN PERCENT AUTO 0.8 % (0.0-0.4); LYMPHOCYTES ABSOLUTE AUTO 1.5 K/mm3 (1.0-4.8); LYMPHOCYTES PERCENT AUTO 24.3 % (24.0-44.0); MEAN CORPUSCULAR HEMOGLOBIN 28.3 pg (28.0-32.0); MEAN CORPUSCULAR HGB CONC 32.5 g/dl (32.0-36.0); MEAN CORPUSCULAR VOLUME 87.1 fl (83.0-99.0); MEAN PLATELET VOLUME 9.2 fl (9.4-12.4); MONOCYTES ABSOLUTE AUTO 0.8 K/mm3 (0.0-0.8); MONOCYTES PERCENT AUTO 13.2 % (0.0-8.0); NEUTROPHILS ABSOLUTE AUTO 3.4 K/mm3 (1.8-7.7); NEUTROPHILS PERCENT AUTO 55.7 % (41.0-71.0); PLATELET COUNT,PLT 386 K/mm3 (150-400); RED BLOOD CELL COUNT 3.64 M/mm3 (4.52-5.90); WHITE BLOOD CELL COUNT,WBC 6.05 K/mm3 (3.9-11.3)
[2023-09-02 14:44] LABS: HEMOGLOBIN 10.3 gm/dl (14.0-18.0)
[2023-09-02] MEDS: Sodium Chloride 0.9% 10 ML Syringe FLUSH ONE (14:56)
[2023-09-02 15:00] LABS: INR 1.41; PROTHROMBIN TIME 14.7 SECONDS (9.7-12.0)
[2023-09-02 15:03] LABS: A/G RATIO 0.5 (1-2); ALBUMIN 2.5 g/dl (3.4-5.0); ANION GAP 12.8 (5-15); BILIRUBIN TOTAL 0.3 mg/dL (0.2-1.0); BUN/CREATININE RATIO 14.4 (14-18); C-REACTIVE PROTEIN 2.49 mg/dL (<0.30); CALCIUM 8.6 mg/dL (8.5-10.1); CREATININE 0.9 mg/dL (0.7-1.3); EST CRCL DRUG DOSING (CG) 74.46 mL/min; POTASSIUM,K 3.8 mEq/L (3.5-5.1); PROTEIN TOTAL,TP 7.4 g/dl (6.4-8.2)
[2023-09-02] MEDS: cefTRIAXone 1 GM in Sodium Chloride 0.9% 100 ML IV ONE (15:37)
[2023-09-02] MEDS: VANCOmycin 1.5 GM/300 ML 1.5 GM in Premix Bag 1 BAG IV ONE ×2 (17:50→20:02)
[2023-09-02 22:15] VITALS: BP 128/78; PULSE 83
== END 2023-09-02 22:15 ==
LOC: JD.ED 12:17
DX: M86.261 Subacute osteomyelitis, right tibia and fibula (principal); I10 Essential (primary) hypertension; E78.00 Pure hypercholesterolemia, unspecified; I48.91 Unspecified atrial fibrillation; E11.9 Type 2 diabetes mellitus without complications; Z86.16 Personal history of COVID-19; Z95.9 Presence of cardiac and vascular implant and graft, unspecified; Z91.198 Patient's noncompliance with other medical treatment and regimen for other reason; Z79.899 Other long term (current) drug therapy; Z79.84 Long term (current) use of oral hypoglycemic drugs
CPT/HCPCS: 36415; 73564; 73700; 80053; 85025; 85610; 85652; 86140; 87040; 96365; 96366; 96367; 99285; J0696; J3370; J3490

== ENCOUNTER 2023-10-17 16:03 | Emergency (ER) | payer MEDICARE ==
[2023-10-17 17:39] LABS: BASOPHILS PERCENT AUTO 0.3 % (0.0-1.0); EOSINOPHILS ABSOLUTE AUTO 0.2 K/mm3 (0.0-0.4); EOSINOPHILS PERCENT AUTO 3.4 % (0.0-6.0); HEMOGLOBIN 12.7 gm/dl (14.0-18.0); IMMATURE GRAN ABSOLUTE AUTO 0.04 K/mm3 (0.00-0.05); IMMATURE GRAN PERCENT AUTO 0.6 % (0.0-0.4); LYMPHOCYTES ABSOLUTE AUTO 1.6 K/mm3 (1.0-4.8); LYMPHOCYTES PERCENT AUTO 25.3 % (24.0-44.0); MEAN CORPUSCULAR HEMOGLOBIN 28.6 pg (28.0-32.0); MEAN CORPUSCULAR HGB CONC 32.6 g/dl (32.0-36.0); MEAN CORPUSCULAR VOLUME 87.8 fl (83.0-99.0); MEAN PLATELET VOLUME 10.1 fl (9.4-12.4); MONOCYTES ABSOLUTE AUTO 0.7 K/mm3 (0.0-0.8); MONOCYTES PERCENT AUTO 11.2 % (0.0-8.0); NEUTROPHILS ABSOLUTE AUTO 3.8 K/mm3 (1.8-7.7); NEUTROPHILS PERCENT AUTO 59.2 % (41.0-71.0); PLATELET COUNT,PLT 238 K/mm3 (150-400); RED BLOOD CELL COUNT 4.44 M/mm3 (4.52-5.90); WHITE BLOOD CELL COUNT,WBC 6.43 K/mm3 (3.9-11.3)
[2023-10-17 18:10] LABS: A/G RATIO 0.9 (1-2); ALBUMIN 3.5 g/dl (3.4-5.0); ANION GAP 14.1 (5-15); BILIRUBIN TOTAL 0.4 mg/dL (0.2-1.0); BUN/CREATININE RATIO 18.8 (14-18); C-REACTIVE PROTEIN 0.05 mg/dL (<0.30); CREATININE 0.8 mg/dL (0.7-1.3); EST CRCL DRUG DOSING (CG) 82.63 mL/min; POTASSIUM,K 4.1 mEq/L (3.5-5.1); PROTEIN TOTAL,TP 7.5 g/dl (6.4-8.2)
[2023-10-17] MEDS: Sodium Chloride 0.9% 10 ML Syringe FLUSH PRN (18:20)
[2023-10-17] MEDS: Sodium Chloride 0.9% 10 ML Syringe FLUSH ONE (18:52)
[2023-10-17] MEDS: Iopamidol 612 MG/ML 100 ML Bottle IVPUSH ONE (18:52)
[2023-10-17] MEDS ORDERED: Penicillin V Potassium 500 MG Tab PO ONE (20:21)
[2023-10-17] MEDS ORDERED: Amoxicillin 500 MG Cap PO ONE (20:22)
[2023-10-17 20:54] VITALS: BP 140/96; PULSE 66
== END 2023-10-17 20:45 | disposition home or self-care (01) ==
LOC: JD.ED 16:03
DX: M86.261 Subacute osteomyelitis, right tibia and fibula (principal); M25.461 Effusion, right knee; I10 Essential (primary) hypertension; E78.00 Pure hypercholesterolemia, unspecified; E11.9 Type 2 diabetes mellitus without complications; Z86.16 Personal history of COVID-19; Z79.84 Long term (current) use of oral hypoglycemic drugs; Z79.899 Other long term (current) drug therapy; Z79.891 Long term (current) use of opiate analgesic; Z88.8 Allergy status to other drugs, medicaments and biological substances
CPT/HCPCS: 36415; 73701-26-RT; 73701-RT; 80053; 85025; 85652; 86140; 99284; J3490; Q9967